=== PATIENT | female | born 1955 | race Caucasian/White ===

== ENCOUNTER 2024-12-23 18:55 | Outpatient (CLI) | payer OTHER, SELFPAY ==
--- NOTE | 2024-12-23 19:15 | DI.RAD_ITS ---
Exam(s) XR ANKLE RT COMPLETE EXAM: XR ANKLE RT COMPLETE CLINICAL HISTORY: evaluate fx. TECHNIQUE: 2D digital imaging was performed. COMPARISON: No exams were available for comparison FINDINGS: 3 views No evidence of fracture nor widening the ankle mortise. Talar dome unremarkable. Base of 5th metatarsal unremarkable. There is a small inferior calcaneal spur noted. No soft tissue swelling IMPRESSION: No acute osseous findings in the ankle. DATA REPOSITORY: RADIATION DOSE DELIVERED:
--- NOTE | 2024-12-23 19:15 | DI.RAD_ITS ---
Exam(s) XR FOOT RT COMPLETE EXAM: XR FOOT RT COMPLETE CLINICAL HISTORY: evaluate fx. TECHNIQUE: 2D digital imaging was performed. COMPARISON: No exams were available for comparison FINDINGS: 3 views There is some soft tissue swelling over the medial aspect of the foot adjacent to the great toe metatarsal head and 1st MTP joint there is no evidence of fracture nor diastasis of the Lisfranc joint. The great toe metatarsophalangeal joint appears unremarkable. Also no hallux valgus. There are no obvious degenerative changes nor erosions in the foot and there is no evidence of pes planus. There is no inferior calcaneal spur. No enthesophytes. IMPRESSION: No acute osseous findings in the right foot. However, there is soft tissue swelling over the medial aspect of the foot at level with the great toe metatarsophalangeal joint. DATA REPOSITORY: RADIATION DOSE DELIVERED:
--- NOTE | 2024-12-23 20:06 | DI.VRAD_ITS ---
PROCEDURE INFORMATION: Exam: XR Right Foot Exam date and time: 12/23/2024 7:28 PM Age: 69 years old Clinical indication: Injury or trauma; Fall; Other: Twisting and pain; Injury details: Patient stepped down in a ditch and rolled ankle / foot onto the lateral side TECHNIQUE: Imaging protocol: Radiologic exam of the right foot. Views: 3 or more views. COMPARISON: CR XR ANKLE RT COMPLETE 12/23/2024 7:25 PM FINDINGS: Bones/joints: No acute fracture or dislocation. No suspicious bony lesions. Soft tissues: No soft tissue swelling. IMPRESSION: 1. No acute radiographic findings. 2. If pain persists, consider repeat imaging in 5-7 days to exclude occult fracture. Dictated and Authenticated by: Gilma Lewis MD. Orderin Thomas Valderrama MD
--- NOTE | 2024-12-23 20:07 | DI.VRAD_ITS ---
PROCEDURE INFORMATION: Exam: XR Right Ankle Exam date and time: 12/23/2024 7:25 PM Age: 69 years old Clinical indication: Injury or trauma; Fall; Other: Twisting and pain; Injury details: Patient stepped down in a ditch and rolled ankle / foot onto the lateral side TECHNIQUE: Imaging protocol: Radiologic exam of the right ankle. Views: 3 or more views. COMPARISON: No relevant prior studies available. FINDINGS: Bones/joints: No acute fracture or dislocation. No suspicious bony lesions. Soft tissues: Normal. No tibiotalar joint effusion. No soft tissue swelling. IMPRESSION: No acute findings. If pain persists, consider repeat imaging in 5-7 days to exclude occult fracture. Dictated and Authenticated by: Gilma Lewis MD. Orderin Thomas Valderrama MD
== END 2024-12-23 19:15 ==
LOC: DI 18:55
PROVIDERS: Visit Provider Nurse Practitioner Family
DX: M25.571 Pain in right ankle and joints of right foot (principal)
CPT/HCPCS: 73610; 73630